=== PATIENT | male | born 1985 | race Two or more races ===

== ENCOUNTER 2017-11-07 14:17 | Emergency (ER) | payer SELFPAY ==
[2017-11-07] MEDS: fentaNYL PF VIAL 100 MCG/2 ML VIAL IV (15:57)
[2017-11-07] MEDS ORDERED: LIDOCAINE 1%/EPI 1:100,000 20 ML VIAL. INJ (16:15)
[2017-11-07] MEDS: LIDOCAINE 2%/EPI 1:100,000 20 ML VIAL. IJ (16:32)
== END 2017-11-07 17:29 | disposition home or self-care (01) ==
LOC: ER 14:17
DX: S01.81XA Laceration without foreign body of other part of head, initial encounter (principal); S09.90XA Unspecified injury of head, initial encounter; M79.642 Pain in left hand; W01.198A Fall on same level from slipping, tripping and stumbling with subsequent striking against other object, initial encounter; Y93.89 Activity, other specified; Y92.009 Unspecified place in unspecified non-institutional (private) residence as the place of occurrence of the external cause; Y99.8 Other external cause status
CPT/HCPCS: 12013; 70450; 70486; 72125; 73130; 96374; 99284-25; J3010; J3490